=== PATIENT | female | born 1990 ===

== ENCOUNTER 2022-05-26 06:29 | Day surgery (SDC) | payer MEDICAID ==
[~2022-05-26] VITALS: Ht 157.5 cm; Wt 59.0 kg
[2022-05-26 06:41] LABS: HCG,QUAL RESULT NEGATIVE (NEGATIVE)
[2022-05-26] MEDS ORDERED: MIDAZOLAM HCL 5 MG/5 ML VIAL ONE (06:45)
[2022-05-26] MEDS ORDERED: MEPERIDINE 100 MG INJ. 100 MG/ML VIAL ONE (06:45)
[2022-05-26 13:22] VITALS: BP_SYST 101
== END 2022-05-26 11:05 | disposition home or self-care (01) ==
LOC: SDS 06:29 → SMU 08:20 → SDS 11:05
PROVIDERS: ATTEND Internal Medicine Gastroenterology
DX: R19.4 Change in bowel habit (principal); K64.8 Other hemorrhoids; R19.7 Diarrhea, unspecified; R19.37 Generalized abdominal rigidity; Z20.822 Contact with and (suspected) exposure to COVID-19
CPT/HCPCS: 45380; 87426; 84703; 36415; 88305; 99152; G0378; J2250; J2175